=== PATIENT | male | born 1985 | race African-American/Black ===

== ENCOUNTER 2022-01-18 01:35 | Emergency (ER) | payer OTHER ==
[2022-01-18] MEDS ORDERED: Acetaminophen 500 MG TAB ONE (02:59)
[2022-01-18 03:52] LABS: SARS-CoV-2 NAA Rapid Test Not Detected (NotDetected)
[2022-01-18] MEDS ORDERED: Dexamethasone 10 MG/ML VIAL ONE (03:53)
[2022-01-18] MEDS ORDERED: cefTRIAXone\\ROCEPHIN 1 GM VIAL ONE (03:54)
== END 2022-01-18 04:20 | disposition home or self-care (01) ==
LOC: CSHERS 01:35
DX: J02.0 Streptococcal pharyngitis (principal); Z20.822 Contact with and (suspected) exposure to COVID-19
CPT/HCPCS: 87430; 96372; 99283; J0696; J1100